=== PATIENT | male | born 1990 | race Caucasian/White ===

== ENCOUNTER 2017-02-16 09:28 | Emergency (ER) | payer OTHER ==
[~2017-02-16] VITALS: Ht 188 cm; Wt 100.1 kg
[2017-02-16 09:38] VITALS: TEMP 36.8; Ht 188 cm; Wt 100.1 kg
--- NOTE | 2017-02-16 10:04 | EMERGENCY ROOM VISIT NOTE ---
History Report prepared by Sil: Jose Griffith Under the Supervision of: Dr. Bruno Fernandez M.D. First contact with patient: 09:55 Chief Complaint: CHEST PAIN Stated Complaint: CHEST PAIN Nursing Triage Summary: Patient c/o of chest pain, shortness of breath and palpitations which began 1 hr ago. Pain resolved then came back 15 minutes ago. Hx of SVT. History of Present Illness The patient is a 26 year old male who presents to the Emergency Room with complaints of resolved tachycardia that occurred about an hour prior to arrival. The patient states that was driving and got an episode of SVT. He states that he stepped outside of his car and performed a vagal maneuver which helped bring his heart rate down, and then he relaxed and sat for a while. The patient has a history of SVT, and he had a similar episode a month or two ago. He notes that he used to be on diltiazem two years ago, and he follows up with cardiology for this. The patient currently denies any chest pain, abdominal pain , or recent leg swelling. He states that he was drinking alcohol last night, and he currently feels dehydrated. Source of History: patient Onset: an hour ago Position: other (global) Quality: other (tachycardia) Timing: resolved Associated Symptoms: No chest pain, No abdominal pain Review of Systems See HPI for pertinent positives & negatives. A total of 10 systems reviewed and were otherwise negative. Past Medical & Surgical Medical Problems: (1) SVT (supraventricular tachycardia) Social History Smoking Status: Never Smoker Alcohol Use: occasionally Marital Status: single Occupation Status: employed Current/Historical Medications No Active Prescriptions or Reported Meds Allergies Coded Allergies: Doxycycline (Unverified Allergy, Unknown, ., 02/16/17) Iodinated Diagnostic Agents (Unverified Allergy, Unknown, ., 02/16/17) Physical Exam Vital Signs Date Time Temp Pulse Resp B/P (MAP) Pulse Ox O2 Delivery O2 Flow Rate FiO2 02/16/17 11:50 88 16 120/76 98 02/16/17 10:51 87 16 119/74 98 Room Air 02/16/17 10:26 95 Room Air 02/16/17 09:59 108 02/16/17 09:38 36.8 120 18 151/88 98 Room Air 02/16/17 09:38 98 Room Air Physical Exam GENERAL: Patient is a healthy-appearing well-nourished male HEAD: Normocephalic atraumatic EYES: Ocular movements intact pupils equal and react to light OROPHARYNX mucous membranes are moist no exudates present no erythema or edema present NECK: Supple no nuchal rigidity CHEST: Good equal expansion LUNGS: Clear and equal to auscultation CARDIAC: Normal S1 and S2 ABDOMEN: Soft nontender no guarding BACK: No CVA tenderness EXTREMITIES: No pain upon palpation normal muscle strength in all groups no clubbing cyanosis or edema NEURO: Patient is following commands and answering questions appropriately. Alert and oriented x3 Cranial Nerves 2-12 grossly intact Medical Decision & Procedures ER Provider Diagnostic Interpretation: Radiology results as stated below per my review and radiologist interpretation: SINGLE VIEW CHEST CLINICAL HISTORY: Atypical chest pain. FINDINGS: An AP, portable, upright chest radiograph is obtained. No prior studies are available for comparison at the time of dictation. The cardiomediastinal silhouette is unremarkable. The lungs and pleural spaces are clear. No pneumothorax is seen. The bony thorax is grossly intact. IMPRESSION: No active disease in the chest. Electronically signed by: Ricardo Alcaraz M.D. 02/16/2017 10:39 AM Dictated Date/Time: 02/16/2017 10:39 AM Laboratory Results 02/16/17 09:50 Red Blood Count 5.26, Mean Corpuscular Volume 87.5, Mean Corpuscular Hemoglobin 32.5, Mean Corpuscular Hemoglobin Concent 37.2, Mean Platelet Volume 11.1, Neutrophils (%) (Auto) 64.3, Lymphocytes (%) (Auto) 24.4, Monocytes (%) (Auto) 8.9, Eosinophils (%) (Auto) 1.4, Basophils (%) (Auto) 0.3, Neutrophils # (Auto) 4.45, Lymphocytes # (Auto) 1.69, Monocytes # (Auto) 0.62, Eosinophils # (Auto) 0.10, Basophils # (Auto) 0.02 02/16/17 09:50 Test 02/16/17 09:50 White Blood Count 6.93 K/uL (4.8-10.8) Red Blood Count 5.26 M/uL (4.7-6.1) Hemoglobin 17.1 g/dL (14.0-18.0) Hematocrit 46.0 % (42-52) Mean Corpuscular Volume 87.5 fL (80-100) Mean Corpuscular Hemoglobin 32.5 pg (25-34) Mean Corpuscular Hemoglobin Concent 37.2 g/dl (32-36) Platelet Count 137 K/uL (130-400) Mean Platelet Volume 11.1 fL (7.4-10.4) Neutrophils (%) (Auto) 64.3 % Lymphocytes (%) (Auto) 24.4 % Monocytes (%) (Auto) 8.9 % Eosinophils (%) (Auto) 1.4 % Basophils (%) (Auto) 0.3 % Neutrophils # (Auto) 4.45 K/uL (1.4-6.5) Lymphocytes # (Auto) 1.69 K/uL (1.2-3.4) Monocytes # (Auto) 0.62 K/uL (0.11-0.59) Eosinophils # (Auto) 0.10 K/uL (0-0.5) Basophils # (Auto) 0.02 K/uL (0-0.2) RDW Standard Deviation 38.8 fL (36.4-46.3) RDW Coefficient of Variation 12.3 % (11.5-14.5) Immature Granulocyte % (Auto) 0.7 % Immature Granulocyte # (Auto) 0.05 K/uL (0.00-0.02) Anion Gap 9.0 mmol/L (3-11) Est Creatinine Clear Calc Drug Dose 157.2 ml/min Estimated GFR () 136.1 Estimated GFR (Non- 117.5 BUN/Creatinine Ratio 13.7 (10-20) Calcium Level 9.3 mg/dl (8.5-10.1) Total Bilirubin 0.6 mg/dl (0.2-1) Direct Bilirubin 0.1 mg/dl (0-0.2) Aspartate Amino Transf (AST/SGOT) 18 U/L (15-37) Alanine Aminotransferase (ALT/SGPT) 47 U/L (12-78) Alkaline Phosphatase 39 U/L (45-117) Total Creatine Kinase 222 U/L (39-308) Creatine Kinase MB 1.3 ng/ml (0.5-3.6) Creatine Kinase MB Ratio 0.6 (0-3.0) Troponin I < 0.015 ng/ml (0-0.045) Total Protein 7.6 gm/dl (6.4-8.2) Albumin 4.5 gm/dl (3.4-5.0) Lipase 160 U/L (73-393) Labs reviewed by ED physician. ECG Indication: tachycardia Rate (beats per minute): 100 Rhythm: normal sinus Findings: no acute ischemic change, no ectopy ED Course 0955: Past medical records reviewed. The patient was evaluated in room B12. A complete history and physical examination was performed. 1148: Upon reexamination the patient is doing well. I discussed results and treatment plan with the patient. He verbalizes agreement and understanding. The patient is ready for discharge. Medical Decision Differential diagnosis: Etiologies such as premature contractions, electrolyte abnormality, cardiac dysrhythmia, thyroid dysfunction, pulmonary embolism, infection, gastrointestinal, as well as others were entertained. This is a 26-year-old male who presents emergency department complaining of palpitations. The patient has a history of SVT. I will note that the patient has a heart rate here of 100 and is in no distress. He denies any chest pain or shortness of breath. The patient reports he was drinking alcohol last evening and does feel that this had something to do with his rapid heart rate today. Due to the shortage of fluid the patient was given by mouth fluids in the emergency department. He has a normal CK-MB troponin as well as normal EKG. I do feel that the patient is well enough to be discharged home for follow -up with his primary care physician. Patient was in agreement with the treatment plan. Impression Primary Impression: Palpitations Scribe Attestation The scribe's documentation has been prepared under my direction and personally reviewed by me in its entirety. I confirm that the note above accurately reflects all work, treatment, procedures, and medical decision making performed by me. 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
[2017-02-16 10:26] VITALS: O2SAT 95
[2017-02-16 10:36] LABS: BASO % 0.3 %; BASO ABS # 0.02 K/uL (0-0.2); COMPLETE YES; EOS % 1.4 %; IG% 0.7 %; LYMPH % 24.4 %; LYMPH ABS # 1.69 K/uL (1.2-3.4); MEAN CELL VOLUME 87.5 fL (80-100); MEAN CORPUSCULAR HEMOGLOBIN 32.5 pg (25-34); MEAN CORPUSCULAR HGB CONC 37.2 g/dl (32-36); MEAN PLATELET VOLUME 11.1 fL (7.4-10.4); MONO % 8.9 %; NEUT % 64.3 %; PLATELET COUNT 137 K/uL (130-400); RED BLOOD COUNT 5.26 M/uL (4.7-6.1); WHITE BLOOD COUNT 6.93 K/uL (4.8-10.8)
--- NOTE | 2017-02-16 10:41 | DIAGNOSTIC IMAGING REPORT ---
SINGLE VIEW CHEST CLINICAL HISTORY: Atypical chest pain. FINDINGS: An AP, portable, upright chest radiograph is obtained. No prior studies are available for comparison at the time of dictation. The cardiomediastinal silhouette is unremarkable. The lungs and pleural spaces are clear. No pneumothorax is seen. The bony thorax is grossly intact. IMPRESSION: No active disease in the chest. Electronically signed by: Ricardo Alcaraz M.D. 02/16/2017 10:39 AM Dictated Date/Time: 02/16/2017 10:39 AM
[2017-02-16 10:55] LABS: ALKALINE PHOSPHATASE 39 U/L (45-117); ALT/SGPT 47 U/L (12-78); BLOOD UREA NITROGEN 12 mg/dl (7-18); BUN/CREATININE RATIO 13.7 (10-20); CALCIUM 9.3 mg/dl (8.5-10.1); CARBON DIOXIDE 27 mmol/L (21-32); CHLORIDE 108 mmol/L (98-107); GLUCOSE 92 mg/dl (70-99)
[2017-02-16 10:57] LABS: POTASSIUM 3.9 mmol/L (3.5-5.1); SODIUM 143 mmol/L (136-145)
[2017-02-16 11:06] LABS: AST/SGOT 18 U/L (15-37); CKMB/CK RATIO 0.6 (0-3.0)
[2017-02-16 11:50] VITALS: BP 120/76; PULSE 88; O2SAT 98
== END 2017-02-16 11:50 | disposition home or self-care (01) ==
LOC: C.EDB 09:30
DX: R00.2 Palpitations (principal)